=== PATIENT | female | born 1960 | race Caucasian/White ===

== ENCOUNTER 2017-02-07 12:39 | Emergency (ER) | payer BC ==
[~2017-02-07] VITALS: Ht 157.5 cm; Wt 76.5 kg
[~2017-02-07 12:39] MED LIST: ALPR0.5T6 PO; BUPR150T6 PO; ENAL20TA PO; FENO134C PO; FOLI-49 PO; FURO-109 PO; GABA400C14 PO; HYDR-3671 PO; LEVO125T75 PO; METO50TA16 PO; PANT40TA4 PO; POTA8CAP PO; SENN-53 PO; SIMV20TA2 PO; SITA1TAB7 PO
[2017-02-07 12:40] VITALS: Ht 157.5 cm; Wt 76.5 kg
--- NOTE | 2017-02-07 21:45 | RADRPT ---
PROCEDURE: US DVT. CLINICAL INDICATION: Bilateral lower extremity pain and swelling. TECHNIQUE: Multiple longitudinal and transverse images of the bilateral lower extremity veins were obtained with chavis scale and color Doppler imaging. 2D grayscale measurements with compression, co anel Doppler flow, and augmentation was performed. The calf veins were interrogated as well. COMPARISON: 05/03/2016. FINDINGS: The bilateral common femoral, superficial femoral and popliteal veins are normally compressible thro ughout. Color flow demonstrates normal filling of the vessel. Normal waveforms are visualized and there is normal response to augmentation. The calf veins are visualized and are equally unremarkabl e. IMPRESSION: 1. No evidence of a deep vein thrombosis involving either lower extremity. No significant interval change. RPTAT: HFN .Jose R Grimm MD, MD Date Time Electronically viewed and signed by .Jose R Grimm MD, MD on 02/07/2017 21:45 .N/
[2017-02-07] MEDS ORDERED: HYDR-906 PO (22:20)
--- NOTE | 2017-02-07 22:20 | ERD ---
ER Documentation Chief Complaint Date/Time DATE: 02/07/17 TIME: 22:17 Chief Complaint BILATERAL LEG PAIN X 1 MONTH HX DVT AND HTN HPI This is a 57-year-old female with a history of hypertension and previous DVT who presents to the emergency room for bilateral lower extremity pain for 1 months duration. The patient states she came to the emergency room to get an ultrasound to make sure she does not have another blood clot. The patient denies being on any blood thinners at this time but does state that she is taking a baby aspirin, and gabapentin. She denies any trauma to the area and denies any chest pain or palpitations associated with this ROS All systems reviewed and are negative except as per history of present illness. Medications Home Meds Active Scripts Furosemide* (Lasix*) 40 Mg Tablet, 40 MG PO DAILY, #20 TAB Prov:ALICIA VAZQUEZ MD 05/03/16 Hydralazine Hcl* (Hydralazine Hcl*) 25 Mg Tab, 25 MG PO Q8, #90 TAB Prov:FELIX BARRETO 08/11/14 Reported Medications Alprazolam* (Alprazolam*) 0.5 Mg Tablet, 0.5 MG PO QHS Y for ANXIETY, TAB 05/03/16 Bupropion Hcl* (Bupropion XL*) 150 Mg Tab.er.24h, 150 MG PO DAILY, TAB.SA 05/03/16 Sennosides* (Senna Lax*) 8.6 Mg Tablet, 1 TAB PO DAILY, TAB 05/03/16 Potassium Chloride* (Potassium Chloride*) 8 Meq Capsule.er, 8 MEQ PO DAILY, CAP 05/03/16 Sitagliptin Phos-Metformin Hcl (Janumet) 50-1,000 Mg Tablet, 1 TAB PO BID, TAB 08/07/14 Pantoprazole* (Pantoprazole*) 40 Mg Tablet.dr, 40 MG PO BID, TAB 08/07/14 Metoprolol Succinate* (Toprol XL*) 50 Mg Tab.er.24h, 50 MG PO BID, TAB 08/07/14 Fenofibrate, Micronized (Fenofibrate) 134 Mg Capsule, 134 MG PO DAILY, CAP 08/07/14 Gabapentin* (Gabapentin*) 400 Mg Capsule, 400 MG PO TID, CAP 08/07/14 Folic Acid* (Folic Acid*) 1 Mg Tablet, 1 MG PO DAILY, TAB 08/07/14 Simvastatin (Simvastatin) 20 Mg Tablet, 20 MG PO HS, TAB 08/07/14 Enalapril Maleate* (Enalapril Maleate*) 20 Mg Tablet, 20 MG PO BID, TAB 08/07/14 Levothyroxine Sodium* (Levothyroxine Sodium*) 125 Mcg Tablet, 125 MCG PO AC BREAKFAST, TAB 08/07/14 Allergies Allergies: Coded Allergies: amoxicillin (Unverified Allergy, Unknown, ITCHING, 05/03/16) PMhx/Soc History of Surgery: Yes (BACK, L BREAST ) Anesthesia Reaction: No Hx Neurological Disorder: No Hx Respiratory Disorders: Yes (ASTHMA/COPD) Hx Cardiac Disorders: Yes (HIGH CHOLESTEROL, HIGH BLOOD PRESSURE) Hx Psychiatric Problems: No Hx Miscellaneous Medical Probl: Yes (S/P DVT LEFT LEG) Hx Alcohol Use: No Hx Substance Use: No Hx Tobacco Use: Yes Smoking Status: Current every day smoker Physical Exam Vitals Vital Signs Date Time Temp Pulse Resp B/P Pulse Ox O2 Delivery O2 Flow Rate FiO2 02/07/17 12:40 98.3 78 18 189/79 98 Physical Exam INITIAL VITAL SIGNS: Reviewed by me GENERAL: The patient is well developed and appropriate for usual state of health in no apparent distress HEENT: Pupils equal, round, and reactive to light. EOMI. There is no scleral icterus. NECK: C-spine is soft and supple, there is no meningismus. There is no cervical lymphadenopathy. LUNGS: Clear to auscultation bilaterally. There are no rales, wheezes or rhonchi. HEART: Regular rate and rhythm, no murmurs, clicks, rubs or gallops. ABDOMEN: Soft, non-tender, non-distended. There are bowel sounds in all four quadrants. No rebound or guarding. EXTREMITIES: No calf tenderness, there is no peripheral cyanosis or edema. No focal swelling or erythema. NEUROLOGICAL: The patient moves all four extremities with 5/5 strength. Cranial nerves II - XII are intact. Normal gait. Alert and oriented SKIN: There is no apparent rash or petechiae. HEME/LYMPHATIC: There is no evidence of excessive bruising or lymphedema. PSYCHIATRIC: The patient does not appear anxious or depressed. Procedures/MDM Ultrasound bilateral lower extremities: No DVT This 57-year-old female presents to the ER for evaluation of bilateral lower extremity pain. The patient had no swelling, no signs of vascular compromise. She had a palpable dorsalis pedis pulse and posterior tibial pulse bilaterally and equal. The patient underwent bilateral ultrasounds of the lower extremity to rule out DVT. Ultrasound does not reveal DVT. The patient states that she would like to go home at this time. The patient will be discharged with a prescription for Cornucopia for leg pain Departure Diagnosis: Primary Impression: Bilateral leg pain Condition: Stable RADHA FISHER DO Feb 07, 2017 22:20
== END 2017-02-07 22:34 | disposition home or self-care (01) ==
LOC: E/R 12:39
DX: M79.605 Pain in left leg (principal); M79.604 Pain in right leg; J44.9 Chronic obstructive pulmonary disease, unspecified; F17.210 Nicotine dependence, cigarettes, uncomplicated; I10 Essential (primary) hypertension; Z79.82 Long term (current) use of aspirin
CPT/HCPCS: 93970; Z7502

== ENCOUNTER 2018-01-23 13:02 | Emergency (ER) | END 2018-01-23 15:55 | disposition home or self-care (01) ==